=== PATIENT | male | born 1960 | race Caucasian/White ===

== ENCOUNTER → 2017-05-21 | Outpatient (CLI) | payer OTHER ==
--- NOTE | 2017-05-21 12:23 | RAD ---
Left shoulder CT Indication: Left shoulder pain for one week. No injury. Technique: Noncontrast CT of the left shoulder with multiplanar reformats. Comparison: None Findings: No acute fracture or dislocation. Mild acromioclavicular joint osteoarthritis. No joint effusion. No evidence of calcific tendinosis. No radiopaque foreign body in the glenohumeral joint. No supraclavicular or axillary adenopathy. Moderate-sized bullae and centrilobular emphysema noted within visualized left lung. Ribs are within normal limits. Impression: 1. No acute fracture or dislocation. 2. No significant evidence of osteoarthritis. 3. Visualized left lung show significant emphysematous changes. PQRS Compliance Statement: One or more of the following individualized dose reduction techniques were utilized for this examination: 1. Automated exposure control 2. Adjustment of the mA and/or kV according to patient size 3. Use of iterative reconstruction technique
== END | disposition home or self-care (01) ==
LOC: CT 09:01
PROVIDERS: ATTEND Preventive Medicine Occupational Medicine
DX: M25.512 Pain in left shoulder (principal); J43.8 Other emphysema
CPT/HCPCS: 73200